=== PATIENT | female | born 2000 | race Hispanic/Latino ===

== ENCOUNTER 2020-05-09 00:15 | Emergency (ER) | payer SELFPAY ==
[~2020-05-09] VITALS: Ht 160 cm; Wt 61.2 kg
--- NOTE | 2020-05-09 00:44 | NUR ---
tampon removed by Dr Vizcaino, string attached. NAD noted.
--- NOTE | 2020-05-09 01:03 | Emergency Department Note ---
History of Present Illnes History of Present Illness Chief Complaint: General Medicine Complaints History of Present Illness This is a 20 year old female who presents with vaginal foreign body. Placed tampon at 1700, and unable to get tampon out since 1900. Stated period today. Has used same type of tampon in past without difficulty. Denies any other symptom, Historian: Patient Arrival Mode: [employer] Inspector Required: No Onset (how long ago): hour(s) Location: vaginal Quality: FB sensation Radiation: Reports non-radiation Onset quality: unable to specify Duration (how long): hour(s) Timing of current episode: constant Progression: unchanged Chronicity: new Context: Denies recent illness Relieving factors: none Exacerbating factors: none Associated symptoms: Reports denies other symptoms Past Medical/Family History Physician Review I have reviewed the patient's past medical and family history. Any updates have been documented here. Past Medical History Recent Fever: No Clinical Suspicion of Infectio: No New/Unexplained Change in Ment: No Past Medical History: None Past Surgical History: None Social History Smoking Cessation: Never Smoker Counseling Performed: No Alcohol Use: None Any Illegal Drug Use: No Physically hurt or threatened: No Other Any Pre-Existing Lines (PICC,: No Review of Systems Review of Systems Constitutional: Denies chills, Denies fever EENTM: Denies nose congestion, Denies throat pain Cardiovascular: Denies chest pain Respiratory: Denies pain with cough, Denies dyspnea Gastrointestinal: Denies abdominal pain, Denies nausea, Denies vomiting Genitourinary: Denies dysuria Musculoskeletal: Denies joint pain Integumentary: Denies rash Neurological: Denies headache Psychological: Denies anxiety Endocrine: Denies increased thirst, Denies increased urination Hematological/Lymphatic: Denies easy bruising Physical Exam Related Data Triage Vital Signs Vital Signs Date Time Temp Pulse Resp B/P (MAP) Pulse Ox O2 Delivery O2 Flow Rate FiO2 05/09/20 00:20 98.2 77 18 137/70 99 Room Air Physical Exam CONSTITUTIONAL Constitutional: Present well-developed, Present well-nourished HENT HENT: Present normocephalic, Present atraumatic, Present oropharynx clear/moist, Present nose normal HENT L/R: Present left ext ear normal, Present right ext ear normal EYES Eyes: Reports PERRL, Reports conjunctivae normal NECK Neck: Present ROM normal PULMONARY Pulmonary: Present effort normal, Present breath sounds normal CARDIOVASCULAR Cardiovascular: Present regular rhythm, Present heart sounds normal, Present capillary refill normal, Present normal rate GASTROINTESTINAL Abdominal: Present soft, Present nontender, Present bowel sounds normal GENITOURINARY Genitourinary: Present other (Extranal exam normal with no signs of tampon. speculum exam: Tampon in vagina) SKIN Skin: Present warm, Present dry MUSCULOSKELETAL Musculoskeletal: Present ROM normal NEUROLOGICAL Neurological: Present alert, Present oriented x 3, Present no gross motor or sensory deficits PSYCHOLOGICAL Psychological: Present mood/affect normal, Present judgement normal Procedures Foreign Body Time out performed: Yes Site: vagina Description: other (tampon) Sedation/analgesia: none Technique: removal w forceps (with speculum) Confirmed by: patient report Post procedure exame: awake, alert Neurovascular: no change from pre-procedure Assessment & Plan Medical Decision Making MDM FB (tampon) removed with speculum and forceps. Do not suspect toxic shock as afebrile, and tampon retained for 7 hours. Assessment & Plan Final Impression: (1) Vaginal foreign body Depart Disposition: HOME, SELF-CARE Last Vital Signs Date Time Temp Pulse Resp B/P (MAP) Pulse Ox O2 Delivery O2 Flow Rate FiO2 05/09/20 00:20 98.2 77 18 137/70 99 Room Air LUCIANA ZAMBRANO MD May 09, 2020 01:01
== END 2020-05-09 00:46 | disposition home or self-care (01) ==
LOC: FSED 00:30
DX: T19.2XXA Foreign body in vulva and vagina, initial encounter (principal)
CPT/HCPCS: 99283